=== PATIENT | male | born 1975 | race Caucasian/White ===

== ENCOUNTER 2016-11-04 07:38 | Emergency (ER) | payer OTHER ==
[~2016-11-04 07:38] MED LIST: CIPR-255 PO
[2016-11-04 07:43] VITALS: Ht 175.3 cm
[2016-11-04] MEDS ORDERED: IBUPROFEN 600 MG TAB PO STA (07:46)
--- NOTE | 2016-11-04 07:47 | EMERGENCY ROOM VISIT NOTE ---
History Report prepared by Roly: Radha Castillo Under the Supervision of: Dr. Mayank Jiang M.D. First contact with patient: 07:43 Chief Complaint: SHOULDER PAIN Stated Complaint: FELL OFF TRACTOR TRAILER AND LEFT SHOULDER POPOUT History of Present Illness The patient is a 41 year old male who presents to the Emergency Room with complaints of constant left shoulder pain beginning just prior to arrival. The patient states that he was on his tractor trailer when he slipped and fell about 6-7 feet. He notes that he did try to catch himself and got twisted. He felt his left shoulder popped out. He states that he feels like the left shoulder is back in place. The patient denies LOC, head injury, back pain, neck pain, abdominal pain, shortness of breath, or chest pain. He denies a history of injuries to his left shoulder. Source of History: patient Onset: just METAL BENDING MACHINE OPERATOR Position: shoulder (left) Timing: constant Associated Symptoms: No LOC, No chest pain, No SOB, No abdominal pain, No back pain Review of Systems See HPI for pertinent positives & negatives. A total of 10 systems reviewed and were otherwise negative. Past Medical & Surgical Medical Problems: (1) Tonsillectomy Old medical records were reviewed. Nurse's notes were reviewed and I agree with. Family History Diabetes mellitus Social History Smoking Status: Current Some Day Smoker Alcohol Use: occasionally Marital Status: Housing Status: lives with significant other Occupation Status: employed Allergies Coded Allergies: No Known Allergies (Unverified , 11/04/16) Physical Exam Vital Signs Date Time Temp Pulse Resp B/P (MAP) Pulse Ox O2 Delivery O2 Flow Rate FiO2 11/04/16 08:33 88 16 183/128 98 11/04/16 07:43 88 16 183/128 98 Room Air Physical Exam General: Well developed well nourished in no acute distress middle aged man, breathing comfortably on room air. Normal speech HEENT: Normal cephalic atraumatic. Pupils are equal round and reactive to light. Extraocular movements are intact. Oropharynx is pink with moist mucous membranes. No swelling of the mouth lips or tongue. Neck: Supple with a midline trachea. No meningeal signs or stiffness, no JVD or bruits. No Stridor. Chest: Clear to auscultation bilaterally. No wheezes or rhonchi. No increased work of breathing. Heart: regular rate and rhythm. Abdomen: Soft nontender, nondistended without rebound guarding or rigidity. Extremities: Mild tenderness to lateral left shoulder, shoulder appears not dislocated in square, no tenderness over AC joint, pain with abduction but otherwise motor sensation intact. No cyanosis clubbing or edema. No calf tenderness or assymetry Spine/Back. Non tender to palpation. No CVA tenderness Skin: Good turgor without rashes. Neurologic exam: Cranial nerves two through 12 are intact. Motor and sensation are intact and symmetrical throughout. Medical Decision & Procedures ER Provider Diagnostic Interpretation: X-ray results as stated below per interpretation by me and the radiologist: LEFT SHOULDER MIN 2 VIEWS ROUTINE CLINICAL HISTORY: Left shoulder pain status post trauma COMPARISON: None. DISCUSSION: No fractures or dislocations are visualized. IMPRESSION: No fractures or dislocations identified. Electronically signed by: Brandon Hatch M.D. 11/04/2016 8:08 AM Dictated Date/Time: 11/04/2016 8:07 AM Medications Administered Medications (Trade) Dose Ordered Sig/Earl Route Start Time Stop Time Status Last Admin Dose Admin Ibuprofen (Motrin Tab) 600 mg NOW STAT PO 11/04/16 07:46 11/04/16 07:48 DC 11/04/16 07:53 600 MG ED Course 0743: Past medical records reviewed. The patient was evaluated in room A11, and a complete history and physical examination were performed. 0746: Motrin Tab 600 mg PO. 0820: Upon reevaluation, the patient is hemodynamically stable. I discussed the results and treatment plan with him. He verbalized agreement of the treatment plan. The patient was discharged home. Medical Decision Differentials include, but are not limited to; dislocation, ligamentous injury, AC separation, sprain. Medication Reconciliation: I attest that I have personally reviewed the patient' s current medication list. Blood pressure Screening: Patient was found to have an elevated blood pressure that is mostly likely related to pain and was referred to their primary doctor for recheck and further treatment. This patient comes in after having some left shoulder pain after having an injury where felt like it popped out at work feels like his back and now. He's had no problems with the shoulder before. On exam. He is located . He has no numbness or weakness he has pain with abduction and has no tenderness or before meals joint. X-rays do not show any fracture or dislocation. It may be that he dislocated it could also be that he has some injury to the rotator cuff or a sprain. He's can use a sling rest and use ibuprofen. Return if increasing pain , numbness or weakness, worsening of symptoms, any new problems concerns. He is happy with the plan and discharged to home. Impression Primary Impression: Left shoulder pain Additional Impression: Left shoulder strain Scribe Attestation The scribe's documentation has been prepared under my direction and personally reviewed by me in its entirety. I confirm that the note above accurately reflects all work, treatment, procedures, and medical decision making performed by me. Departure Information Dispostion Home / Self-Care Referrals No Doctor, Assigned (PCP) Forms HOME CARE DOCUMENTATION FORM, IMPORTANT VISIT INFORMATION Patient Instructions My [facility] Additional Instructions Rest. Drink plenty of fluids. Ice intermittently. Use sling for comfort and ease back and activity as tolerated Use ibuprofen 400 mg every 6 hours, take with food Return if: Worsening of symptoms, numbness or weakness, fever or chills, increasing pain or problems, any new problems or concerns. Follow-up with Dr. Sanchez in the next couple days for recheck. Problem Qualifiers
--- NOTE | 2016-11-04 08:09 | DIAGNOSTIC IMAGING REPORT ---
LEFT SHOULDER MIN 2 VIEWS ROUTINE CLINICAL HISTORY: Left shoulder pain status post trauma COMPARISON: None. DISCUSSION: No fractures or dislocations are visualized. IMPRESSION: No fractures or dislocations identified. Electronically signed by: Brandon Hatch M.D. 11/04/2016 8:08 AM Dictated Date/Time: 11/04/2016 8:07 AM
[2016-11-04 08:33] VITALS: BP 183/128; PULSE 88; O2SAT 98
== END 2016-11-04 08:34 | disposition home or self-care (01) ==
LOC: C.EDB 07:41 → C.EDA 08:34
DX: S43.402A Unspecified sprain of left shoulder joint, initial encounter (principal); W17.89XA Other fall from one level to another, initial encounter; X50.0XXA Overexertion from strenuous movement or load, initial encounter; F17.210 Nicotine dependence, cigarettes, uncomplicated